=== PATIENT | female | born 1960 | race Two or more races ===

== ENCOUNTER 2016-07-27 11:59 | Emergency (ER) | payer MEDICAID ==
[~2016-07-27] VITALS: Ht 162.6 cm; Wt 113.4 kg
[2016-07-27 12:59] LABS: Basophils # (auto) 0 uL; Basophils % (auto) 0.2 % (0.0-2.0); Eosinophils # (auto) 0.1 uL; Eosinophils % (auto) 1.1 % (0.0-7.0); Hematocrit 47.1 % (36.0-46.0); Hemoglobin 14.7 g/dL (12.2-16.2); Lymphocytes # (auto) 0.5 uL; Lymphocytes % (auto) 6.4 % (10.0-50.0); Mean Corpuscular Hemoglobin 27.5 pg (28.0-32.0); Mean Corpuscular Hgb Conc. 31.3 g/dL (32.0-36.0); Mean Corpuscular Volume 87.9 fL (80.0-100.0); Mean Platelet Volume 12.2 fL (7.4-10.4); Monocytes # (auto) 0.4 uL; Neutrophils # (auto) 6.2 uL; Neutrophils % (auto) 87.3 % (37.0-80.0); Platelet Count (auto) 238 10^3/uL (140-450); Red Cell Distribution Width 14.6 % (11.6-16.0); SUSPECT VIEW TRANSMISSION; White Blood Cell 7.1 10^3/uL (4.4-10.8)
[2016-07-27 13:00] LABS: Urine Bilirubin Negative (Negative); Urine Color Yellow (Yellow); Urine Mucus FEW (None Seen); Urine RBC 7 /hpf (0 - 4); Urine Squamous Epithelial Cell FEW /hpf (<5); Urine Urobilinogen Normal (Negative); Urine pH 5.5 (5.0-8.0)
[2016-07-27 13:05] LABS: INR 0.97 (0.9-1.15); Partial Thromboplastin Time 24.9 sec (22.64-33.71)
[2016-07-27] MEDS ORDERED: SODIUM CHLORIDE 0.9% 1,000 ML IVB ONE (13:05)
[2016-07-27 13:10] LABS: Albumin 3.5 g/dL (3.4-5.0); Calcium 9.3 mg/dL (8.5-10.1); Magnesium 2.2 mg/dL (1.6-2.6); Potassium 4.2 mmol/L (3.5-5.1)
[2016-07-27 13:13] LABS: BUN/Creatinine Ratio 10.7; Bilirubin, Total 0.5 mg/dL (0.2-1.0); Total Protein 7.7 g/dL (6.4-8.2)
[2016-07-27 13:15] LABS: Urine Blood 1+ /uL (Negative); Urine Glucose 4+ mg/dL (Normal); Urine Ketone 4+ (Negative); Urine Nitrite POSITIVE (Negative)
[2016-07-27] MEDS ORDERED: InsuLIN REG 1unit/0.01ml Soln (100units/ml) SC ONE (14:15)
[2016-07-27] MEDS ORDERED: cefTRIAXone 1GM/50ML D5W 50 ML IV ONE (14:15)
[2016-07-27 14:35] VITALS: BP 120/68
== END 2016-07-27 18:10 | disposition left against medical advice (07) ==
LOC: EDBD 11:59 → ER 12:05
DX: R42 Dizziness and giddiness (principal); E11.65 Type 2 diabetes mellitus with hyperglycemia; I10 Essential (primary) hypertension; N39.0 Urinary tract infection, site not specified; E78.5 Hyperlipidemia, unspecified
CPT/HCPCS: 36415; 70450; 71020; 80053; 80320; 81001; 82962; 83735; 84484; 85025; 85610; 85730; 93005; 94761; 96361; 96365; 96372; 99285; J0696; J1815; J7030

== ENCOUNTER 2017-08-21 12:45 | Emergency (ER) | payer OTHER, MEDICAID ==
[~2017-08-21] VITALS: Ht 160 cm; Wt 124.7 kg
[2017-08-21 12:52] VITALS: BP 141/63
== END 2017-08-21 13:45 | disposition home or self-care (01) ==
LOC: ER 12:45
DX: E11.9 Type 2 diabetes mellitus without complications (principal); I10 Essential (primary) hypertension; E78.5 Hyperlipidemia, unspecified; Z76.0 Encounter for issue of repeat prescription; Z79.4 Long term (current) use of insulin

== ENCOUNTER 2020-05-18 13:02 | Inpatient (IN) | payer MEDICAID, OTHER ==
[~2020-05-18] VITALS: Ht 160 cm; Wt 117.9 kg
[2020-05-18] MEDS ORDERED: AMIODARONE HCL 150 MG in D5W 5% 100 ML IV ONE (13:45)
[2020-05-18] MEDS: AMIODARONE 450mg/250ml AE 250 ML IV SCH ×2 (14:18→14:23)
[2020-05-18 14:40] LABS: Basophils # (auto) 0 10 ^3/uL (0-0.2); Basophils % (auto) 0.6 % (0.0-2.0); Eosinophils # (auto) 0.2 10 ^3/uL (0-0.8); Eosinophils % (auto) 3.6 % (0.0-7.0); Hematocrit 43.5 % (36.0-46.0); Hemoglobin 14.3 g/dL (12.2-16.2); Lymphocytes # (auto) 0.6 10 ^3/uL (0.4-5.4); Lymphocytes % (auto) 11.5 % (10.0-50.0); Mean Corpuscular Hemoglobin 30.1 pg (28.0-32.0); Mean Corpuscular Hgb Conc. 32.8 g/dL (32.0-36.0); Monocytes # (auto) 0.3 10 ^3/uL (0-1.3); Monocytes % (auto) 5.3 % (0.0-12.0); Neutrophils # (auto) 4.1 10 ^3/uL (1.6-8.6); Nucleated Red Blood Cells % 0.1 %; Platelet Count (auto) 189 10^3/uL (140-450); Red Blood Cells 4.73 10^6/uL (4.0-5.20); Red Cell Distribution Width 14.8 % (11.8-14.3); White Blood Cell 5.1 10^3/uL (4.4-10.8)
[2020-05-18 14:50] LABS: Albumin 2.8 g/dL (3.4-5.0); Calcium 8.4 mg/dL (8.5-10.1); Potassium 3.8 mmol/L (3.5-5.1)
[2020-05-18 14:51] LABS: Partial Thromboplastin Time 27.2 sec (23.0-31.2)
[2020-05-18 14:55] LABS: Bilirubin, Total 0.5 mg/dL (0.2-1.0); Total Protein 7.2 g/dL (6.4-8.2)
[2020-05-18] MEDS ORDERED: DEXTROSE (50%) 50ML SYRG IV PRN (19:15)
[2020-05-18] MEDS ORDERED: POTASSIUM CHL 20 Meq TABLET PO ONE (19:15)
[2020-05-18] MEDS ORDERED: DIGOXIN (250MCG/ML) 2 ML AMPULE IV ONE (19:15)
[2020-05-18] MEDS ORDERED: FUROSEMIDE 40 MG/4 ML VIAL IV ONE (19:15)
[2020-05-18] MEDS ORDERED: NITROGLYCERIN 0.4 MG SL TAB SL PRN ×2 (19:15→21:15)
[2020-05-18] MEDS ORDERED: MAGNESIUM SULFATE 1GM/100ML 100 ML IV ONE (19:15)
[2020-05-18] MEDS ORDERED: MORPHINE SULF INJ 2 MG/ML SYRINGE 1ML IV PRN ×3 (19:15→21:15)
[2020-05-18] MEDS ORDERED: METOPROLOL SUCCINATE XL 50 MG TAB PO ONE (19:30)
--- NOTE | 2020-05-18 20:15 | NUR ---
Zenaida Hospitalist Zenaida hospitalist regarding patient Amiodarone is Sanjuana'Suze. Patient is running AFIB with Heart rate in the 130-140, Patient is asymptomatic. BP- 134/73 20 Respirations, Temp 98.0 Hr 133. Will await call back. Addendum: 05/18/20 at 2343 by MICHELLE NAVARRETE RN RN zenaida florence at 2214 2014
[2020-05-18] MEDS: ALBUMIN 25% 100 ML IV SCH (20:50)
[2020-05-18] MEDS ORDERED: INFLUENZA QUAD 2020-2021 0.5 ML SYRG IM ONE (21:15)
[2020-05-18] MEDS ORDERED: ALUM & MAG HYDROX-SIMETH LIQ(MAALOX) 30 ML PO PRN (21:15)
[2020-05-18] MEDS ORDERED: HYDROcodone-ACET 5/325MG TAB PO PRN (21:15)
[2020-05-18] MEDS ORDERED: LORazepam 0.5 MG TAB PO PRN (21:15)
[2020-05-18] MEDS ORDERED: ONDANSETRON HCL 4 MG/2 ML VIAL IV PRN (21:15)
[2020-05-18] MEDS ORDERED: PNEUMOCOCCAL VACC POLYS 25 MCG/0.5 ML VIAL IM ONE (21:15)
[2020-05-18] MEDS ORDERED: DOCUSATE SOD 100 MG CAP PO PRN (21:15)
[2020-05-18 21:45] VITALS: BP 134/73
--- NOTE | 2020-05-18 21:45 | NUR ---
Telemetry admit from ER JON PADGETT admitted to Telemetry unit after SBAR received. Patient oriented to MICHELLE NAVARRETE, RN primary RN, unit, room, bed, and unit policies regarding patient care and visiting hours. Patient now on continuous telemetry monitoring, tele box # 27 and telemetry reading on arrival to unit is AFIB hr 133. Patient placed on bedside oxygen, weighed by bedscale and encouraged to call if they need something. All questions and concerns addressed, patient verbalized understanding. Patient is asymptomatic. no pain or distress noted at this time.
[2020-05-18] MEDS: InsuLIN REG 1unit/0.01ml Soln (100units/ml) SC SCH (22:00)
[2020-05-18] MEDS: ACCU-CHEK COMFORT CURVE STRIP VI SCH (22:00)
[2020-05-18 22:06] VITALS: BP 134/73
--- NOTE | 2020-05-18 22:15 | NUR ---
Paged Hospitalist Paged hospitalist regarding patient Amiodarone is D'C. Patient is running AFIB with Heart rate in the 130-140, Patient is asymptomatic. BP- 134/73 20 Respirations, Temp 98.0 Hr 133. Will await call back.
[2020-05-18 22:36] LABS: Magnesium 2.3 mg/dL (1.6-2.6); Potassium 3.5 mmol/L (3.5-5.1)
[2020-05-18] MEDS: GABAPENTIN 100 MG CAP PO SCH (22:42)
[2020-05-18] MEDS: CARVEDILOL 3.125 MG TAB PO SCH (22:47)
[2020-05-18] MEDS: ATORVASTATIN 20 MG TAB PO SCH (22:48)
[2020-05-18] MEDS: NORTRIPTYLINE HCL 10 MG CAP PO SCH (22:48)
--- NOTE | 2020-05-19 00:02 | NUR ---
Paged Hospitalist Paged Hospitalist regarding patients Heart rate still in the 130. And running Afib. Will wait call back.
--- NOTE | 2020-05-19 00:08 | NUR ---
Hospitalist paged back Hospitalist paged back regarding patient Heart rate is now in the low 100-120. Patient is still asymptomatic. Amiodarone drip was discontinued. Let hospitalist know if patient is to continue Digoxin at 0100. Hospitalist said to keep it the way it is. No more amiodarone. Continue medications as scheduled. I also asked for a sleeping pill for patient, doctor said not at this time. Will continue to monitor.
[2020-05-19] MEDS ORDERED: ALBUMIN 25% 100 ML IV SCH (00:30)
[2020-05-19] MEDS: ALBUMIN 25% 100 ML IV SCH (00:40)
[2020-05-19] MEDS: DIGOXIN (250MCG/ML) 2 ML AMPULE IV SCH ×2 (01:45→07:06)
[2020-05-19 02:40] LABS: Cholesterol 110 mg/dL (< 200)
[2020-05-19 02:43] LABS: HDL Cholesterol 54 mg/dL (40-59); LDL Cholesterol 50 mg/dL (< 100); Triglycerides 81 mg/dL (< 150)
--- NOTE | 2020-05-19 02:45 | NUR ---
Patient ambulated to restroom No sob or distress noted. Patient states she feels fine. Heart rate is 110. Patient is still in afib. Will continue to monitor.
--- NOTE | 2020-05-19 03:55 | NUR ---
TELE BOX SENT TO ICU CLEANED.
--- NOTE | 2020-05-19 04:00 | NUR ---
Closing note Patient informed she is covid negative. Patient and all belongings and chart sent to room 295B with WILSON Zimmerman after report given. Patient was wheeled to room and tolerated well. No SOB or distress noted.
--- NOTE | 2020-05-19 04:05 | NUR ---
Patient arrived to unit Received report and assumed care of patient. Patient is awake and alert. No signs or symptoms of distress noted. Will continue to monitor.
[2020-05-19] MEDS: GABAPENTIN 100 MG CAP PO SCH ×3 (06:34→22:00)
[2020-05-19] MEDS: FUROSEMIDE 40 MG/4 ML VIAL IV SCH ×2 (06:34→17:26)
[2020-05-19] MEDS: ACCU-CHEK COMFORT CURVE STRIP VI SCH ×4 (07:04→22:00)
[2020-05-19] MEDS: InsuLIN REG 1unit/0.01ml Soln (100units/ml) SC SCH ×4 (07:05→22:00)
[2020-05-19 09:00] VITALS: BP 113/78
[2020-05-19] MEDS: FLUoxetine HCL 20 MG CAP PO SCH (09:06)
[2020-05-19] MEDS: CARVEDILOL 3.125 MG TAB PO SCH ×2 (09:06→22:00)
[2020-05-19] MEDS: LOSARTAN POTASSIUM 25 MG TAB PO SCH (09:07)
[2020-05-19] MEDS ORDERED: POTASSIUM CHL 20 Meq TABLET PO ONE (10:00)
[2020-05-19] MEDS: dilTIAZem 120MG ER CAP PO SCH ×2 (10:00→12:24)
[2020-05-19] MEDS ORDERED: DIGOXIN (250MCG/ML) 2 ML AMPULE IV ONE (10:00)
--- NOTE | 2020-05-19 10:47 | NUR ---
Spoke to Dixie OLIVEIRA regarding BP 90s/70s HR 102s, received new orders to hold Diltazem.
[2020-05-19 11:03] LABS: Urine Bacteria NONE SEEN /hpf (None Seen); Urine Blood Negative /uL (Negative); Urine Specific Gravity 1.005 (1.001-1.035); Urine WBC 1 /hpf (0 - 5)
[2020-05-19 11:14] LABS: Alcohol, Urine < 3.0 mg/dL (0-10); Amphetamine Screen, Urine NEGATIVE (NEGATIVE); Barbiturate Scree,Urine NEGATIVE (NEGATIVE); Benzodiazephine Screen, Urine NEGATIVE (NEGATIVE); Cannabinoid Screen, Urine NEGATIVE (NEGATIVE); Cocaine Screen, Urine NEGATIVE (NEGATIVE); Opiate Scree,Urine NEGATIVE (NEGATIVE); Phencyclidine Screen, Urine NEGATIVE (NEGATIVE)
--- NOTE | 2020-05-19 12:14 | NUR ---
Informed Keny DISPUTE COORDINATOR regarding HR 120s, stated to give Diltiazem if SBP>100.
[2020-05-19 13:00] VITALS: BP 138/72
[2020-05-19 17:00] VITALS: BP 106/65
[2020-05-19] MEDS ORDERED: WARFARIN SODIUM 2.5 MG TAB PO ONE (17:00)
[2020-05-19 22:00] VITALS: BP 128/87
[2020-05-19] MEDS: NORTRIPTYLINE HCL 10 MG CAP PO SCH (22:00)
[2020-05-19] MEDS: ATORVASTATIN 20 MG TAB PO SCH (22:00)
--- NOTE | 2020-05-20 01:35 | NUR ---
Pt's HR in 140s to 150s. This RN reporting to pt's room finding pt up OOB and in bathroom. Denies any discomfort, SOB or dizziness. States her HR prob 'fast' because she had been trying to clean herself of feces and unable to do so 2/2 obesity. This RN assisted pt in cleaning herself and gave standby assist for pt back to bed.
--- NOTE | 2020-05-20 02:10 | NUR ---
Pt back into bed per nurse's direction as cont A fib in 110s - 120s and c/o sharp stabbing galvez in mid sternum. O2 nasal cannula placed with O2 at 2lpm.
--- NOTE | 2020-05-20 02:29 | NUR ---
Pt cont playing games or 'painting' on her phone apps. States, "I feel better...pain is gone."
[2020-05-20 05:00] VITALS: BP 133/74
[2020-05-20] MEDS: GABAPENTIN 100 MG CAP PO SCH ×3 (06:00→22:01)
[2020-05-20] MEDS: FUROSEMIDE 40 MG/4 ML VIAL IV SCH ×2 (06:29→17:28)
[2020-05-20] MEDS: ACCU-CHEK COMFORT CURVE STRIP VI SCH ×4 (06:44→22:02)
[2020-05-20] MEDS: InsuLIN REG 1unit/0.01ml Soln (100units/ml) SC SCH ×4 (07:23→22:08)
--- NOTE | 2020-05-20 07:34 | NUR ---
Pt and this RN discussed fluidi intake requirements, diet needs to combat CHF, DM, and HTN on various visits into room. Pt showed interest and some prev knowledge. VU. In good spirits at this time.
[2020-05-20 09:00] VITALS: BP 109/71
[2020-05-20 09:01] LABS: Basophils # (auto) 0 10 ^3/uL (0-0.2); Basophils % (auto) 0.8 % (0.0-2.0); Eosinophils # (auto) 0.3 10 ^3/uL (0-0.8); Eosinophils % (auto) 5.2 % (0.0-7.0); Hematocrit 45.2 % (36.0-46.0); Hemoglobin 14.8 g/dL (12.2-16.2); Lymphocytes # (auto) 0.7 10 ^3/uL (0.4-5.4); Lymphocytes % (auto) 11.1 % (10.0-50.0); Mean Corpuscular Hemoglobin 30.1 pg (28.0-32.0); Mean Corpuscular Hgb Conc. 32.8 g/dL (32.0-36.0); Mean Corpuscular Volume 91.7 fL (80.0-100.0); Monocytes # (auto) 0.5 10 ^3/uL (0-1.3); Monocytes % (auto) 8.1 % (0.0-12.0); Neutrophils # (auto) 4.4 10 ^3/uL (1.6-8.6); Neutrophils % (auto) 74.8 % (37.0-80.0); Nucleated Red Blood Cells % 0.2 %; Platelet Count (auto) 213 10^3/uL (140-450); Red Blood Cells 4.93 10^6/uL (4.0-5.20); Red Cell Distribution Width 14.6 % (11.8-14.3); White Blood Cell 5.9 10^3/uL (4.4-10.8)
[2020-05-20] MEDS: dilTIAZem 120MG ER CAP PO SCH (09:02)
[2020-05-20] MEDS: CARVEDILOL 3.125 MG TAB PO SCH ×2 (09:03→22:01)
[2020-05-20] MEDS: FLUoxetine HCL 20 MG CAP PO SCH (09:03)
[2020-05-20] MEDS: LOSARTAN POTASSIUM 25 MG TAB PO SCH (09:04)
[2020-05-20 09:10] LABS: INR 1.03 (0.9-1.15)
[2020-05-20 09:26] LABS: BUN/Creatinine Ratio 15.7; Calcium 9.6 mg/dL (8.5-10.1); Potassium 3.8 mmol/L (3.5-5.1)
--- NOTE | 2020-05-20 10:14 | NUR ---
LIZZ RUELAS paged , awaiting to call back.
--- NOTE | 2020-05-20 10:41 | NUR ---
1040 05/20/20 I faxed transfer order and Notice Regarding Post Stabilization to [facility]-document to be scanned into [facility]. I faxed today's transfer summary, labs, vitals, and medication list to [facility]. I faxed negative COVID test to [facility].
[2020-05-20 13:00] VITALS: BP 101/58
--- NOTE | 2020-05-20 14:22 | NUR ---
1420 05/20/20 I called [facility] and spoke with software engineering analyst Kari regarding transfer order. Per Kari they did receive the transfer order and case reviewer is working on it-they will call nurse's station if/when a bed becomes available. Per Kari, she is unable to give me updated information on authorization for continued stay-she will have to have the case reviewer call me back. I let her know that I am pageable through the hospital acid wash operator until 1700.
--- NOTE | 2020-05-20 16:55 | NUR ---
BS 405, spoke to Dr. Salvador, received new orders, noted and carried it out.
--- NOTE | 2020-05-20 16:58 | NUR ---
CD delivered, placed in the folder.
[2020-05-20] MEDS ORDERED: WARFARIN SODIUM 10 MG TAB PO ONE (17:00)
[2020-05-20] MEDS ORDERED: DEXTROSE (50%) 50ML SYRG IV PRN (17:00)
--- NOTE | 2020-05-20 17:10 | NUR ---
Received a call from Theresa RUELAS from [facility] stated patient has a bed and wants to talk to Dr. Salvador, however, unable to page Dr. Salvador after 5 PM and SURAJ [facility] infection control coordinator till 5 PM. Instructed to call power tong operator for infection control coordinator .
--- NOTE | 2020-05-20 18:42 | NUR ---
Fax the check list back to [facility] # [phone].
--- NOTE | 2020-05-20 18:43 | NUR ---
Received a call from Sb OLIVEIRA stated [place] wants to transfer patient to [facility] but patient needs a stress test, which they cannot provide to patient. Therefore, patient has to stay at [facility].
--- NOTE | 2020-05-20 18:49 | NUR ---
Informed patient regarding [facility] cannot transfer her tonight due to she needs a stress test.
--- NOTE | 2020-05-20 19:00 | NUR ---
Opening Shift Note Assumed care of patient, awake and alert. No S/S of distress/SOB or pain. Instructed on POC and to call for assist PRN, will continue to monitor for changes Q1hr and PRN. Patient in the lowest possible position with call light within reach. Bed rails up x2.
[2020-05-20 20:00] VITALS: BP 139/64
[2020-05-20] MEDS: ATORVASTATIN 20 MG TAB PO SCH (22:01)
[2020-05-20 22:30] VITALS: BP 139/64
[2020-05-20] MEDS: NORTRIPTYLINE HCL 10 MG CAP PO SCH (22:42)
[2020-05-21 05:00] VITALS: BP 106/57
[2020-05-21 05:58] LABS: Basophils # (auto) 0 10 ^3/uL (0-0.2); Basophils % (auto) 0.6 % (0.0-2.0); Eosinophils # (auto) 0.3 10 ^3/uL (0-0.8); Eosinophils % (auto) 4.8 % (0.0-7.0); Hematocrit 43.2 % (36.0-46.0); Hemoglobin 14.2 g/dL (12.2-16.2); Lymphocytes # (auto) 0.7 10 ^3/uL (0.4-5.4); Lymphocytes % (auto) 13.5 % (10.0-50.0); Mean Corpuscular Hemoglobin 29.8 pg (28.0-32.0); Mean Corpuscular Hgb Conc. 32.8 g/dL (32.0-36.0); Mean Corpuscular Volume 90.8 fL (80.0-100.0); Monocytes # (auto) 0.6 10 ^3/uL (0-1.3); Monocytes % (auto) 11.1 % (0.0-12.0); Neutrophils # (auto) 3.8 10 ^3/uL (1.6-8.6); Nucleated Red Blood Cells % 0.3 %; Platelet Count (auto) 215 10^3/uL (140-450); Red Blood Cells 4.76 10^6/uL (4.0-5.20); Red Cell Distribution Width 14.6 % (11.8-14.3); White Blood Cell 5.4 10^3/uL (4.4-10.8)
[2020-05-21 06:07] LABS: INR 1.04 (0.9-1.15)
[2020-05-21] MEDS: GABAPENTIN 100 MG CAP PO SCH ×3 (06:20→21:35)
[2020-05-21] MEDS: FUROSEMIDE 40 MG/4 ML VIAL IV SCH ×2 (06:20→17:36)
[2020-05-21] MEDS: ACCU-CHEK COMFORT CURVE STRIP VI SCH ×4 (06:21→21:40)
[2020-05-21] MEDS: InsuLIN REG 1unit/0.01ml Soln (100units/ml) SC SCH ×4 (06:28→21:48)
[2020-05-21] MEDS ORDERED: ADENOSINE 85 MG in GIVE UN-DILUTED 0 ML IV STA (08:48)
[2020-05-21 09:00] VITALS: BP 132/58
--- NOTE | 2020-05-21 10:24 | NUR ---
Stress Test Connected patient to plastics bench mechanic. Pt in Afib with RVR of HR at 135. Notified BOLT CUTTER Jesus and she stated the patients HR needs to be under control before the test can be completed. Took patient back up to her room. Will assess tomorrow if patients HR is under control and we may be able to proceed at that time. Notified primary RN Samreen
--- NOTE | 2020-05-21 10:27 | NUR ---
1020 05/21/20 - contacted [facility] at [phone] to get an update on pending transfer, spoke with reconciliation analyst Tristian who requested me to fax current clinicals and order for transfer. I informed Tristian all current clinicals were faxed early this morning. Newspaper Subscription Solicitor stated the caser up assigned today to this patient is Ann Marie Barnard who will call me back with an updated regarding this transfer to [place]. Received a call from [place] caser up Dominique at 1040 who stated currently there are no beds available in [place] or [place]. Only beds available are in [place] which is more than 30 miles from patients resident. She will call back later with an update.
[2020-05-21] MEDS: FLUoxetine HCL 20 MG CAP PO SCH (10:30)
[2020-05-21] MEDS: LOSARTAN POTASSIUM 25 MG TAB PO SCH (10:31)
[2020-05-21] MEDS: CARVEDILOL 3.125 MG TAB PO SCH ×2 (10:32→21:34)
[2020-05-21] MEDS: DIGOXIN 0.125 MG TAB PO SCH (10:32)
--- NOTE | 2020-05-21 11:40 | NUR ---
1025 05/21/20 - Contacted by Barbara pillowcase sewer Dominique who provided authorization [id number] for inpatient stay 05/21- 05/22 2020@1000AM. Pending transfer to [facility] but currently no beds available in the [place] or [place]. Only beds available are in the [place] area which is more than 30 miles from patient's home. biofuels engineering manager stated she will provide update if bed becomes available.
[2020-05-21 16:41] VITALS: BP 110/84
--- NOTE | 2020-05-21 19:25 | NUR ---
Opening Shift Note Assumed care of patient. Patient is sitting up in her chair awake and alert. No S/S of distress/SOB or pain. Bed is locked in lowest position with call light within reach. Instructed on POC and to call for assist PRN, will continue to monitor for changes Q1hr and PRN.
[2020-05-21] MEDS ORDERED: WARFARIN SODIUM 10 MG TAB PO ONE (21:00)
[2020-05-21] MEDS: NORTRIPTYLINE HCL 10 MG CAP PO SCH (21:34)
[2020-05-21] MEDS: ATORVASTATIN 20 MG TAB PO SCH (21:35)
[2020-05-22] MEDS: ACETAMINOPHEN 325 MG TAB PO PRN ×2 (01:18→19:19)
--- NOTE | 2020-05-22 02:40 | NUR ---
PATIENT'S HEART RATE HAS BEEN FLUCTUATING BETWEEN 130S AND 150S. PATIENT IS CURRENTLY ASYMPTOMATIC. VITALS: T 97.9 F BP 116/76 HR 144 AND RR 18. NOTIFIED HOSPITALIST ABOUT THE PATIENT'S HEART RATE. NEW ORDER FOR DILTAZEM 10 MG IV ONCE RECEIVED.
[2020-05-22] MEDS ORDERED: dilTIAZem 25 MG/5 ML VIAL IV ONE (03:00)
[2020-05-22 05:00] VITALS: BP 121/68
[2020-05-22] MEDS: FUROSEMIDE 40 MG/4 ML VIAL IV SCH ×2 (06:00→17:38)
[2020-05-22] MEDS: GABAPENTIN 100 MG CAP PO SCH ×3 (06:00→22:00)
[2020-05-22] MEDS: InsuLIN REG 1unit/0.01ml Soln (100units/ml) SC SCH ×4 (06:43→22:00)
[2020-05-22] MEDS: ACCU-CHEK COMFORT CURVE STRIP VI SCH ×4 (07:00→22:00)
--- NOTE | 2020-05-22 08:29 | NUR ---
STRESS TEST CALLED AND SPOKE WITH KIKI RACHEL AND SHE STATED PATIENTS HR IS IN THE 140'S (A FIB WITH RVR), NOTIFIED ROXANNE DHALIWAL. NO STRESS TEST WILL BE DONE TODAY DUE TO HIGH HR.
[2020-05-22] MEDS: FLUoxetine HCL 20 MG CAP PO SCH (09:06)
[2020-05-22] MEDS: DIGOXIN 0.125 MG TAB PO SCH (09:06)
[2020-05-22] MEDS: LOSARTAN POTASSIUM 25 MG TAB PO SCH (09:06)
[2020-05-22] MEDS: CARVEDILOL 3.125 MG TAB PO SCH (09:07)
[2020-05-22 09:30] VITALS: BP 135/72
[2020-05-22 09:43] LABS: INR 1.08 (0.9-1.15)
[2020-05-22] MEDS: dilTIAZem 120MG ER CAP PO SCH (10:40)
--- NOTE | 2020-05-22 14:52 | NUR ---
Nutrition Assessment Notes please see attached link for complete assessment Est energy needs ABW 85 [id number] kcal (17-20kcal/kg ABW), Est protein needs 85-93g (1-1.1g/kg ABW). Will monitor and reassess prn. Addendum: 05/22/20 at [address] Amended: Links added.
[2020-05-22 15:17] LABS: Potassium 3.8 mmol/L (3.5-5.1)
[2020-05-22 15:19] LABS: Magnesium 1.8 mg/dL (1.6-2.6)
[2020-05-22 17:00] VITALS: BP 109/59
[2020-05-22] MEDS ORDERED: WARFARIN SODIUM 10 MG TAB PO ONE (17:00)
--- NOTE | 2020-05-22 19:35 | NUR ---
Opening Shift Note Assumed care of patient. Patient is still up in chair while watching TV. Patient is awake and alert. No S/S of distress/SOB or pain. Bed is locked in lowest position with call light within reach. Instructed on POC and to call for assist PRN, will continue to monitor for changes Q1hr and PRN.
[2020-05-22 21:00] VITALS: BP 140/82
[2020-05-22] MEDS: ATORVASTATIN 20 MG TAB PO SCH (22:00)
[2020-05-22] MEDS: NORTRIPTYLINE HCL 10 MG CAP PO SCH (22:00)
--- NOTE | 2020-05-23 00:15 | NUR ---
hospitalist notified pt's BS of 401. rechecked done after [id number]
[2020-05-23 05:00] VITALS: BP 138/97
[2020-05-23] MEDS: FUROSEMIDE 40 MG/4 ML VIAL IV SCH ×2 (06:00→17:46)
[2020-05-23] MEDS: GABAPENTIN 100 MG CAP PO SCH ×3 (06:00→21:47)
[2020-05-23] MEDS: InsuLIN REG 1unit/0.01ml Soln (100units/ml) SC SCH ×4 (06:25→21:46)
--- NOTE | 2020-05-23 06:35 | NUR ---
HOSPITALIST PAGED Patient's heart rate is sustaining in the 130s to 150s after getting up to go to the restroom. Notified RETAIL CUSTOMER SERVICE REPRESENTATIVE [place] about the patient's elevated heart rate. Order to give 1000 Diltiazem 240 mg PO earlier.
[2020-05-23] MEDS: ACCU-CHEK COMFORT CURVE STRIP VI SCH ×4 (06:50→21:47)
[2020-05-23] MEDS: dilTIAZem 120MG ER CAP PO SCH (06:50)
[2020-05-23 08:00] VITALS: BP 129/67
[2020-05-23 08:35] LABS: INR 1.29 (0.9-1.15)
[2020-05-23 08:39] LABS: Albumin 3.3 g/dL (3.4-5.0)
[2020-05-23 08:41] LABS: Basophils # (auto) 0 10 ^3/uL (0-0.2); Basophils % (auto) 0.7 % (0.0-2.0); Eosinophils # (auto) 0.1 10 ^3/uL (0-0.8); Eosinophils % (auto) 2.1 % (0.0-7.0); Hematocrit 46.4 % (36.0-46.0); Hemoglobin 15.2 g/dL (12.2-16.2); Lymphocytes # (auto) 0.3 10 ^3/uL (0.4-5.4); Lymphocytes % (auto) 9.6 % (10.0-50.0); Mean Corpuscular Hemoglobin 29.8 pg (28.0-32.0); Mean Corpuscular Hgb Conc. 32.8 g/dL (32.0-36.0); Mean Corpuscular Volume 90.8 fL (80.0-100.0); Monocytes # (auto) 0.6 10 ^3/uL (0-1.3); Monocytes % (auto) 17.5 % (0.0-12.0); Neutrophils # (auto) 2.4 10 ^3/uL (1.6-8.6); Neutrophils % (auto) 70.1 % (37.0-80.0); Nucleated Red Blood Cells % 0.4 %; Platelet Count (auto) 217 10^3/uL (140-450); Red Blood Cells 5.11 10^6/uL (4.0-5.20); Red Cell Distribution Width 14.8 % (11.8-14.3); White Blood Cell 3.4 10^3/uL (4.4-10.8)
[2020-05-23 09:00] VITALS: BP 129/67
[2020-05-23] MEDS: DIGOXIN 0.25 MG TAB PO SCH (10:47)
[2020-05-23] MEDS: FLUoxetine HCL 20 MG CAP PO SCH (10:47)
[2020-05-23] MEDS: LOSARTAN POTASSIUM 25 MG TAB PO SCH (10:49)
[2020-05-23] MEDS ORDERED: WARFARIN SODIUM 10 MG TAB PO ONE (17:00)
--- NOTE | 2020-05-23 19:30 | NUR ---
Opening Shift Note Assumed care of patient, awake and alert. Reported headache, will give pain med. Instructed on POC and to call for assist PRN, will continue to monitor for changes Q1hr and PRN.
[2020-05-23] MEDS: ATORVASTATIN 20 MG TAB PO SCH (21:47)
[2020-05-23] MEDS: NORTRIPTYLINE HCL 10 MG CAP PO SCH (22:00)
[2020-05-24 00:49] VITALS: BP 130/72
[2020-05-24] MEDS: FUROSEMIDE 40 MG/4 ML VIAL IV SCH ×2 (05:38→17:54)
[2020-05-24] MEDS: GABAPENTIN 100 MG CAP PO SCH ×3 (05:38→22:42)
[2020-05-24 05:41] VITALS: BP 135/64
[2020-05-24] MEDS: ACCU-CHEK COMFORT CURVE STRIP VI SCH ×4 (06:24→22:26)
[2020-05-24] MEDS: InsuLIN REG 1unit/0.01ml Soln (100units/ml) SC SCH ×3 (06:26→17:24)
--- NOTE | 2020-05-24 07:30 | NUR ---
closing note endorsed care to WILSON Lezama. Sitting up in chair. denies pain/distress at this time
[2020-05-24 08:00] LABS: INR 1.29 (0.9-1.15)
[2020-05-24] MEDS ORDERED: MAGNESIUM SULFATE 1GM/100ML 100 ML IV ONE (08:15)
[2020-05-24 09:00] VITALS: BP 112/72
[2020-05-24] MEDS: LOSARTAN POTASSIUM 25 MG TAB PO SCH (10:00)
[2020-05-24] MEDS: FLUoxetine HCL 20 MG CAP PO SCH (10:00)
[2020-05-24] MEDS: dilTIAZem 120MG ER CAP PO SCH (10:17)
[2020-05-24] MEDS: DIGOXIN 0.25 MG TAB PO SCH (10:18)
--- NOTE | 2020-05-24 11:00 | NUR ---
WOUND CARE NOTE: WOUND CONSULT ORDERED FOR PATIENT WITH MILD INTERTRIGINOUS RASH TO THE BREAST SKIN FOLD AREAS. SKIN INTACT, RED. ADVISED BEDSIDE NURSE THAT PATIENT SHOULD HAVE ANTIFUNGAL CLEAR OINTMENT PLACED BID TO HER RED RASH AREAS OF BREAST SKIN FOLD. NO WOUND CARE MONITORING IS NEEDED AT THIS TIME.
[2020-05-24] MEDS ORDERED: DIGOXIN 0.25 MG TAB PO ONE (11:30)
[2020-05-24 13:00] VITALS: BP 102/73
[2020-05-24 15:34] LABS: Magnesium 1.7 mg/dL (1.6-2.6); Potassium 3.3 mmol/L (3.5-5.1)
[2020-05-24 17:00] VITALS: BP 113/53
[2020-05-24] MEDS ORDERED: WARFARIN SODIUM 10 MG TAB PO ONE (17:00)
--- NOTE | 2020-05-24 19:30 | NUR ---
Opening Shift Note Assumed care of patient, awake and alert. No S/S of distress/SOB or pain. Instructed on POC and to call for assist PRN, will continue to monitor for changes Q1hr and PRN.
[2020-05-24 21:40] VITALS: BP 125/53
[2020-05-24] MEDS: INSULIN LANTUS (GLARGINE) 1 /0.01ml (100units/ml) SC SCH (22:26)
--- NOTE | 2020-05-24 22:40 | NUR ---
spoke with hosp regarding pt's blood sugar critical value. no new order received.
[2020-05-24] MEDS: ATORVASTATIN 20 MG TAB PO SCH (22:42)
[2020-05-24] MEDS: AMIODARONE HCL 200 MG TAB PO SCH (22:42)
[2020-05-24] MEDS: NORTRIPTYLINE HCL 10 MG CAP PO SCH (22:42)
[2020-05-25] MEDS: InsuLIN REG 1unit/0.01ml Soln (100units/ml) SC SCH ×7 (01:03→23:38)
[2020-05-25 04:00] VITALS: BP 113/71
[2020-05-25] MEDS: GABAPENTIN 100 MG CAP PO SCH ×3 (05:23→22:44)
[2020-05-25] MEDS: FUROSEMIDE 40 MG/4 ML VIAL IV SCH ×2 (05:24→19:21)
[2020-05-25] MEDS: ACCU-CHEK COMFORT CURVE STRIP VI SCH ×5 (06:47→22:00)
--- NOTE | 2020-05-25 07:30 | NUR ---
closing note endorsed care to WILSON Lezama, No sign of pain/distress at this time
[2020-05-25 09:00] VITALS: BP 113/72
[2020-05-25 09:13] LABS: Albumin 3.3 g/dL (3.4-5.0); Calcium 8.8 mg/dL (8.5-10.1)
[2020-05-25 09:16] LABS: BUN/Creatinine Ratio 25.5; Bilirubin, Total 0.4 mg/dL (0.2-1.0)
[2020-05-25 09:51] LABS: INR 1.46 (0.9-1.15)
[2020-05-25] MEDS ORDERED: dilTIAZem 120MG ER CAP PO SCH (10:00)
[2020-05-25] MEDS: AMIODARONE HCL 200 MG TAB PO SCH ×2 (10:09→22:45)
[2020-05-25] MEDS: DIGOXIN 0.25 MG TAB PO SCH (10:10)
[2020-05-25] MEDS: FLUoxetine HCL 20 MG CAP PO SCH (10:11)
[2020-05-25] MEDS ORDERED: POTASSIUM CHL 20 Meq TABLET PO ONE ×2 (12:15→12:45)
--- NOTE | 2020-05-25 12:20 | NUR ---
MD AT BEDSIDE DR. Aga GAN WAS IN TO SEE PATIENT AND MD LEFT NEW ORDERS. MD WANTED TO TO KNOW WHAT CARDIO WAS PLANNING FOR PATIENT HER HEART RATE REMAINS ELEVATED. EMILIA DHALIWAL SENIOR SQL DATABASE DEVELOPER ABOUT SAME AND WAITING FOR HER TO RETURN CALL.
[2020-05-25] MEDS ORDERED: dilTIAZem 25 MG/5 ML VIAL IV ONE (12:30)
[2020-05-25] MEDS ORDERED: dilTIAZem 125mg/125ml BAG KIT 125 ML IV SCH (12:30)
--- NOTE | 2020-05-25 12:30 | NUR ---
Tylor DHALIWAL RETURNED CALLED AND WILL TALK WITH DR. GUDINO ABOUT UNCONTROLLED HEART RATE AND WILL CALL ME BACK.
--- NOTE | 2020-05-25 12:40 | NUR ---
ROXANNE DHALIWAL CALLED AND LEFT NEW ORDERS. PATIENT TO TRANSFER TO [place] SHE HAS ORDERS FOR CARDIZEM DRIP. JOLENE ADKINS MADE AWARE OF SAME.
[2020-05-25] MEDS ORDERED: MAGNESIUM SULFATE 1GM/100ML 100 ML IV ONE (12:45)
[2020-05-25] MEDS ORDERED: IOHEXOL 350 MG/ML 100ML IJ ONE (12:57)
[2020-05-25 13:00] VITALS: BP 121/50
--- NOTE | 2020-05-25 13:40 | NUR ---
PATIENT LEFT FOR CT ANGIOGRAM PER W/C IN STABLE CONDITION. APATIENT'S HR NOTED TO BE IN THE LOW 100 AND 90S AT THIS TIME.
--- NOTE | 2020-05-25 13:53 | NUR ---
Nutrition Followup Notes Pt wt is 119.3 kg Pt is being ruled out for COVID. Pt is with a CCHO 60g, appetite is fair aeb ave 63% PO intake over 3 days per RN doc. Est energy needs ABW 85 [id number] kcal (17-20kcal/kg ABW), Est protein needs 85-93g (1-1.1g/kg ABW). Will monitor and reassess prn. LABS: BUN 26 H, ALB 3.3 L GI: Pt had 1 BM on 05/25 per RN doc BS: 21 low risk. Refer to wound assessment report for further details PES: 1) Decreased nutrient needs r.t adiposity aeb pt1s high BMI of 46.4 kgm2 2) Altered nutrition related lab values r.t current chronic medical condition aeb elev A1C hyperglycemia Malnutrition related to morbid BMI> or equal to 40 Malnutrition related to morbid obesity Yes Comments Will continue to monitor PO status, skin status, pertinent labs and weight trends. Will f/u in 2-3 days 1) Refer to CDE oN DC 2) Continue current plan of care
--- NOTE | 2020-05-25 14:30 | NUR ---
PATIENT NOTED TO BE BACK IN HER ROOM AND HER HEART RATE NOTED TO BE IN THE 80S AND 90S. EMILIA DHALIWAL PETROLEUM INSPECTOR SUPERVISOR AND NOTIFIED HER OF SAME AND PATIENT TO STAY IN TELEMETRY AND SHE LEFT NEW ORDERS. CLARIFIED HER ORDER ORDER FOR POTASSIUM PO PATIENT ALREADY HAD 40 MEQ PREVIOU[address]Y ORDERED BY DR. Aga GAN. SHE STATED THAT SHE WANTED PATIENT TO HAVE TOTAL OF 60 MEQ KCL.
[2020-05-25 17:00] VITALS: BP 103/61
[2020-05-25] MEDS ORDERED: WARFARIN SODIUM 10 MG TAB PO ONE (17:00)
[2020-05-25 22:00] VITALS: BP 124/75
[2020-05-25] MEDS: ATORVASTATIN 20 MG TAB PO SCH (22:43)
[2020-05-25] MEDS: INSULIN LANTUS (GLARGINE) 1 /0.01ml (100units/ml) SC SCH (22:54)
[2020-05-25] MEDS: POTASSIUM CHL 10 Meq TABLET PO SCH (23:15)
[2020-05-25] MEDS: NORTRIPTYLINE HCL 10 MG CAP PO SCH (23:16)
[2020-05-26] MEDS: ACCU-CHEK COMFORT CURVE STRIP VI SCH ×6 (02:00→22:00)
[2020-05-26] MEDS: InsuLIN REG 1unit/0.01ml Soln (100units/ml) SC SCH ×6 (03:02→22:00)
[2020-05-26 05:00] VITALS: BP 113/84
[2020-05-26] MEDS: FUROSEMIDE 40 MG/4 ML VIAL IV SCH ×2 (06:00→17:54)
[2020-05-26] MEDS: GABAPENTIN 100 MG CAP PO SCH ×3 (06:47→22:00)
--- NOTE | 2020-05-26 07:06 | NUR ---
OPENING SHIFT NOTE Assumed care of patient from scene shifter RN. She is alert and orientedx4, patient complaining of headache, will medicate as ordered, no other signs of distress noted. She was updated on the plan of care and verbalized understanding. Bed is locked, in the lowest position, side rails are up x2 and call light is in reach. She was encouraged to call for assistance as needed.
[2020-05-26 08:19] LABS: Potassium 3.5 mmol/L (3.5-5.1)
[2020-05-26 08:23] LABS: Magnesium 2.3 mg/dL (1.6-2.6)
[2020-05-26 08:24] LABS: INR 1.66 (0.9-1.15)
[2020-05-26] MEDS: ACETAMINOPHEN 325 MG TAB PO PRN (08:39)
[2020-05-26 09:00] VITALS: BP 114/62
[2020-05-26] MEDS: AMIODARONE HCL 200 MG TAB PO SCH ×2 (09:49→22:00)
[2020-05-26] MEDS: FLUoxetine HCL 20 MG CAP PO SCH (09:51)
[2020-05-26] MEDS: DIGOXIN 0.125 MG TAB PO SCH (09:51)
[2020-05-26] MEDS: dilTIAZem 120MG ER CAP PO SCH (09:52)
[2020-05-26] MEDS: POTASSIUM CHL 10 Meq TABLET PO SCH ×2 (09:52→22:00)
--- NOTE | 2020-05-26 10:51 | NUR ---
MALIK AT BEDSIDE updated on the patient status, plan of care was discussed with the patient and she verbalized understanding. No new orders received.
--- NOTE | 2020-05-26 10:51 | NUR ---
CALL FROM [facility] Xiao piano case maker was updated on the patient status, Patient stay is authorized for today.
[2020-05-26 13:00] VITALS: BP 125/64
--- NOTE | 2020-05-26 13:15 | NUR ---
PATIENT TAKEN TO XRAY accompanied by staff, no signs of distress noted on departure.
--- NOTE | 2020-05-26 13:40 | NUR ---
PATIENT BACK FROM XRAY. NO SIGNS OF DISTRESS NOTED. PATIENT SITTING IN CHAIR AT BEDSIDE. SHE WAS ENCOURAGED TO CALL FOR ASSISTANCE NEEDED.
[2020-05-26 17:00] VITALS: BP 125/65
[2020-05-26] MEDS ORDERED: WARFARIN SODIUM 2.5 MG TAB PO ONE (17:00)
[2020-05-26] MEDS ORDERED: WARFARIN SODIUM 10 MG TAB PO ONE (17:00)
[2020-05-26] MEDS: NORTRIPTYLINE HCL 10 MG CAP PO SCH (22:00)
[2020-05-26] MEDS: INSULIN LANTUS (GLARGINE) 1 /0.01ml (100units/ml) SC SCH (22:00)
[2020-05-26] MEDS: ATORVASTATIN 20 MG TAB PO SCH (22:00)
[2020-05-26 22:24] VITALS: BP 119/49
[2020-05-27] MEDS: InsuLIN REG 1unit/0.01ml Soln (100units/ml) SC SCH ×5 (02:00→21:56)
[2020-05-27] MEDS: ACETAMINOPHEN 325 MG TAB PO PRN (02:15)
--- NOTE | 2020-05-27 02:15 | NUR ---
Tylenol 650mg po given for throbbing H/A 01/29 per pt's request. Ativan also given as pt c/o not being able to sleep. Pt sitting up in chair; RN instructed her of need to get back into bed.
[2020-05-27] MEDS: ACCU-CHEK COMFORT CURVE STRIP VI SCH ×5 (02:29→21:56)
--- NOTE | 2020-05-27 03:17 | NUR ---
This RN found pt sleeping upright in chair at foot of bed as pt had been before taking Ativan. Standby assist given as pt returned to bed without diff.
[2020-05-27 05:28] LABS: Basophils # (auto) 0 10 ^3/uL (0-0.2); Basophils % (auto) 0.4 % (0.0-2.0); Eosinophils # (auto) 0 10 ^3/uL (0-0.8); Eosinophils % (auto) 1.3 % (0.0-7.0); Hemoglobin 14.6 g/dL (12.2-16.2); Lymphocytes # (auto) 0.5 10 ^3/uL (0.4-5.4); Lymphocytes % (auto) 17.7 % (10.0-50.0); Mean Corpuscular Hemoglobin 30.4 pg (28.0-32.0); Mean Corpuscular Volume 89.4 fL (80.0-100.0); Monocytes # (auto) 0.4 10 ^3/uL (0-1.3); Monocytes % (auto) 12.5 % (0.0-12.0); Neutrophils # (auto) 1.9 10 ^3/uL (1.6-8.6); Neutrophils % (auto) 68.1 % (37.0-80.0); Platelet Count (auto) 168 10^3/uL (140-450); Red Blood Cells 4.81 10^6/uL (4.0-5.20); Red Cell Distribution Width 14.4 % (11.8-14.3); White Blood Cell 2.8 10^3/uL (4.4-10.8)
[2020-05-27 05:29] VITALS: BP 114/74
[2020-05-27 05:36] LABS: INR 2.35 (0.9-1.15)
--- NOTE | 2020-05-27 07:11 | NUR ---
OPENING SHIFT NOTE Assumed care of patient from third shift lieutenant RN. Patient is alert and oriented x4. no signs of distress noted, denies pain. She is sitting in a chair at bedside. She was updated on the plan of care and verbalized understanding. Bed is locked, in the lowest position, side rails upx2, and call light is in reach. She was encouraged to call for assistance as needed.
[2020-05-27 08:00] VITALS: BP 141/68
--- NOTE | 2020-05-27 09:40 | NUR ---
MALIK AT BEDSIDE updated on the patient status. Plan of care was discussed with the patient and she verbalized understanding. No new orders received.
[2020-05-27] MEDS: AMIODARONE HCL 200 MG TAB PO SCH ×2 (10:19→21:57)
[2020-05-27] MEDS: POTASSIUM CHL 10 Meq TABLET PO SCH ×2 (10:19→21:57)
[2020-05-27] MEDS: dilTIAZem 120MG ER CAP PO SCH (10:19)
[2020-05-27] MEDS: FLUoxetine HCL 20 MG CAP PO SCH (10:20)
[2020-05-27] MEDS: DIGOXIN 0.125 MG TAB PO SCH (10:20)
[2020-05-27 12:00] VITALS: BP 134/63
[2020-05-27] MEDS: GABAPENTIN 100 MG CAP PO SCH ×2 (13:44→21:57)
[2020-05-27 16:00] VITALS: BP 117/59
[2020-05-27] MEDS ORDERED: WARFARIN SODIUM 5 MG TAB PO ONE (17:00)
[2020-05-27] MEDS: FUROSEMIDE 40 MG/4 ML VIAL IV SCH (18:00)
--- NOTE | 2020-05-27 19:30 | NUR ---
Opening Shift Note Assumed care of patient, awake and alert. No S/S of distress/SOB or pain. Instructed on POC and to call for assist PRN. Bed in lowest locked position, call light within reach, side rails up x2. Will continue to monitor for changes Q1hr and PRN.
[2020-05-27] MEDS: INSULIN LANTUS (GLARGINE) 1 /0.01ml (100units/ml) SC SCH (21:56)
[2020-05-27] MEDS: NORTRIPTYLINE HCL 10 MG CAP PO SCH (21:57)
[2020-05-27] MEDS: ATORVASTATIN 20 MG TAB PO SCH (21:57)
[2020-05-27 23:26] VITALS: BP 129/68
[2020-05-28] MEDS: ACCU-CHEK COMFORT CURVE STRIP VI SCH ×6 (01:58→21:43)
[2020-05-28] MEDS: InsuLIN REG 1unit/0.01ml Soln (100units/ml) SC SCH ×6 (01:59→21:44)
[2020-05-28 06:21] VITALS: BP 130/64
[2020-05-28] MEDS: GABAPENTIN 100 MG CAP PO SCH ×3 (06:38→21:45)
[2020-05-28] MEDS: FUROSEMIDE 40 MG/4 ML VIAL IV SCH ×2 (06:38→17:34)
--- NOTE | 2020-05-28 08:00 | NUR ---
Opening Shift Note Assumed care of patient, awake and alert. No S/S of distress/SOB or pain. Instructed on POC and to call for assist PRN. Bed in lowest locked position, call light within reach, side rails up x2, bed alarm on. Will continue to monitor for changes Q1hr and PRN.
[2020-05-28 08:26] LABS: INR 2.85 (0.9-1.15)
[2020-05-28 09:00] VITALS: BP 114/62
[2020-05-28] MEDS: AMIODARONE HCL 200 MG TAB PO SCH ×2 (09:27→21:45)
[2020-05-28] MEDS: dilTIAZem 120MG ER CAP PO SCH (09:27)
[2020-05-28] MEDS: FLUoxetine HCL 20 MG CAP PO SCH (09:28)
[2020-05-28] MEDS: DIGOXIN 0.125 MG TAB PO SCH (09:28)
[2020-05-28] MEDS: POTASSIUM CHL 10 Meq TABLET PO SCH ×2 (09:28→21:45)
--- NOTE | 2020-05-28 12:00 | NUR ---
RECEIVED REPORT FROM KIKI RACHEL, PATIENT ALERT AND ORIENTED X4, NOT IN DISTRESS, CLEAR LS IN BILATERAL AND DIMINISHED LUNG LOBES, RR=18, DEEP BREATHING AND BREATHING WAS ENCOURAGED, DEMONSTRATED AND VERBALIZED UNDERSTANDING, DENIED CHEST PAIN AND SOB, A FIB H R=94 ON TELE MONITOR, ABDOMEN SOFT AND ROUND WITH ACTIVE BS, LAST BM TODAY REPORTED, GENERAL SKIN INTACT WARM TO TOUCH, LOWER EXTREMITIES NONE PITTING EDEMA NOTED, RADIAL AND PEDAL PULSES PALPABLE, CAP REFILL <3 SECONDS, DENIED PAIN, HEAD OF BED ELEVATED, BED ON LOW POSITION, RAILS UP X2, CALL LIGHT ON REACH, WILL CONTINUE MONITORING.
--- NOTE | 2020-05-28 12:15 | NUR ---
Nutrition Followup Notes Pt wt is 118.3 kg Pt is covid negative in [facility]. Pt reports appetite is not good starting to come back. Pt appetite appears to be good aeb pt with 75-100% of po intake of CCHo 60g diet per Rn note Est energy needs ABW 85 [id number] kcal (17-20kcal/kg ABW), Est protein needs 85-93g (1-1.1g/kg ABW). Will monitor and reassess prn. LABS: GLUC 149H, BUN 27H, Creat 1.12H, Alb 3.3L GI: Pt had 3 BMs on 05/28 per RN doc BS: 17 mod risk. Refer to wound assessment report for further details PES: 1) Decreased nutrient needs r.t adiposity aeb pt1s high BMI of 46.4 kgm2 2) Altered nutrition related lab values r.t current chronic medical condition aeb elev A1C hyperglycemia Malnutrition related to morbid BMI> or equal to 40 Malnutrition related to morbid obesity Yes Comments Will continue to monitor PO status, skin status, pertinent labs and weight trends. Will f/u in 3-5 days 1) Refer to CDE oN DC 2) Continue current plan of care
[2020-05-28 13:00] VITALS: BP 115/56
--- NOTE | 2020-05-28 16:45 | NUR ---
RESTING ON BED, NOT IN DISTRESS, DENIED PAIN, PENDING LABEL MAKER ON 05/29/20 REPORTED, WILL CONTINUE MONITORING.
[2020-05-28] MEDS ORDERED: WARFARIN SODIUM 1 MG TAB PO ONE (17:00)
[2020-05-28 17:16] VITALS: BP 131/66
--- NOTE | 2020-05-28 19:18 | NUR ---
TOLERATED PROVIDED DINNER TRAY, RESTING ON BED, NOT IN DISTRESS, REPORT WAS GIVEN TO THE EXPERIMENTAL PREFLIGHT MECHANIC RN.
[2020-05-28] MEDS: INSULIN LANTUS (GLARGINE) 1 /0.01ml (100units/ml) SC SCH (21:44)
[2020-05-28] MEDS: NORTRIPTYLINE HCL 10 MG CAP PO SCH (21:45)
[2020-05-28] MEDS: ATORVASTATIN 20 MG TAB PO SCH (21:45)
[2020-05-28 22:00] VITALS: BP 113/76
[2020-05-29] MEDS: InsuLIN REG 1unit/0.01ml Soln (100units/ml) SC SCH ×6 (01:46→22:13)
[2020-05-29] MEDS: ACCU-CHEK COMFORT CURVE STRIP VI SCH ×6 (01:46→22:14)
[2020-05-29 05:00] VITALS: BP 106/71
[2020-05-29] MEDS: GABAPENTIN 100 MG CAP PO SCH ×3 (06:00→21:56)
[2020-05-29] MEDS: FUROSEMIDE 40 MG/4 ML VIAL IV SCH ×2 (06:00→17:29)
--- NOTE | 2020-05-29 07:15 | NUR ---
Opening Shift Note Received report from client development director RN, Assumed care of patient, awake and alert. No S/S of distress/SOB or pain. Instructed on POC for scheduled procedure and to call for assist PRN, will continue to monitor for changes Q1hr and PRN.
--- NOTE | 2020-05-29 07:30 | NUR ---
patient off unit patient off unit in mine laborer for scheduled procedure. Addendum: 05/29/20 at 1059 by REX ALLRED RN RN Amended: Links added.
[2020-05-29] MEDS ORDERED: MIDAZOLAM HCL 1MG/1ML-2 ML VIAL IM ONE (08:15)
[2020-05-29] MEDS ORDERED: fentaNYL CITRATE 100 MCG/2 ML VL IV ONE (08:15)
[2020-05-29] MEDS ORDERED: LIDOCAINE VISCOUS 2% 15ML UD MT ONE (08:15)
[2020-05-29 08:56] VITALS: BP 141/75
--- NOTE | 2020-05-29 09:50 | NUR ---
patient back on unit per report patient given sedation. Patient educated to not eat or drink anything until gag reflex is back. Currently no gag reflex, will continue to monitor.
[2020-05-29 09:59] LABS: Basophils # (auto) 0 10 ^3/uL (0-0.2); Basophils % (auto) 0.2 % (0.0-2.0); Eosinophils # (auto) 0 10 ^3/uL (0-0.8); Eosinophils % (auto) 0.5 % (0.0-7.0); Hematocrit 44.5 % (36.0-46.0); Hemoglobin 14.7 g/dL (12.2-16.2); Lymphocytes # (auto) 0.4 10 ^3/uL (0.4-5.4); Lymphocytes % (auto) 9.9 % (10.0-50.0); Mean Corpuscular Hemoglobin 29.6 pg (28.0-32.0); Mean Corpuscular Hgb Conc. 33.1 g/dL (32.0-36.0); Mean Corpuscular Volume 89.2 fL (80.0-100.0); Monocytes # (auto) 0.4 10 ^3/uL (0-1.3); Monocytes % (auto) 10.3 % (0.0-12.0); Neutrophils # (auto) 2.9 10 ^3/uL (1.6-8.6); Neutrophils % (auto) 79.1 % (37.0-80.0); Nucleated Red Blood Cells % 0.1 %; Platelet Count (auto) 157 10^3/uL (140-450); Red Blood Cells 4.98 10^6/uL (4.0-5.20); Red Cell Distribution Width 14.4 % (11.8-14.3); White Blood Cell 3.7 10^3/uL (4.4-10.8)
[2020-05-29 10:14] LABS: Albumin 2.9 g/dL (3.4-5.0); Calcium 8.6 mg/dL (8.5-10.1); Potassium 4.2 mmol/L (3.5-5.1)
[2020-05-29 10:18] LABS: INR 2.6 (0.9-1.15); Partial Thromboplastin Time 44.8 sec (23.0-31.2)
[2020-05-29 10:20] LABS: BUN/Creatinine Ratio 17.1; Bilirubin, Total 0.4 mg/dL (0.2-1.0); Total Protein 7.6 g/dL (6.4-8.2)
[2020-05-29 10:30] VITALS: BP 136/94
--- NOTE | 2020-05-29 11:15 | NUR ---
Gag reflex redone Gag reflex intact, patient instructed she could drink and eat now. Patient verbalized understanding.
--- NOTE | 2020-05-29 11:22 | NUR ---
MD GAN AT BEDSIDE PATIENT INFORMED OF POC AND POSSIBLE DC TOMORROW ONCE OK WITH MD GUDINO. PATIENT VERBALIZED UNDERSTANDING.
[2020-05-29 12:28] VITALS: BP 114/61
[2020-05-29] MEDS: POTASSIUM CHL 10 Meq TABLET PO SCH ×2 (13:04→21:56)
[2020-05-29] MEDS: FLUoxetine HCL 20 MG CAP PO SCH (13:04)
[2020-05-29] MEDS: DIGOXIN 0.125 MG TAB PO SCH (13:05)
[2020-05-29] MEDS: AMIODARONE HCL 200 MG TAB PO SCH ×2 (13:05→21:55)
[2020-05-29] MEDS: dilTIAZem 120MG ER CAP PO SCH (13:06)
[2020-05-29 17:00] VITALS: BP 117/65
[2020-05-29] MEDS ORDERED: WARFARIN SODIUM 1 MG TAB PO ONE (17:00)
--- NOTE | 2020-05-29 19:45 | NUR ---
assumed care, pt. awake, no c/o pain, no sob.
[2020-05-29 21:00] VITALS: BP 122/77
[2020-05-29] MEDS: NORTRIPTYLINE HCL 10 MG CAP PO SCH (21:56)
[2020-05-29] MEDS: ATORVASTATIN 20 MG TAB PO SCH (21:56)
[2020-05-29] MEDS: INSULIN LANTUS (GLARGINE) 1 /0.01ml (100units/ml) SC SCH (22:14)
[2020-05-30] MEDS: InsuLIN REG 1unit/0.01ml Soln (100units/ml) SC SCH ×4 (02:00→14:00)
[2020-05-30] MEDS: ACCU-CHEK COMFORT CURVE STRIP VI SCH ×4 (02:37→14:00)
[2020-05-30 05:00] VITALS: BP 113/62
[2020-05-30] MEDS: GABAPENTIN 100 MG CAP PO SCH ×2 (05:39→14:00)
[2020-05-30] MEDS: FUROSEMIDE 40 MG/4 ML VIAL IV SCH (05:39)
--- NOTE | 2020-05-30 07:00 | NUR ---
OPENING SHIFT NOTE Assumed care of patient from bus cleaner RN. Patient is alert and oriented x4. no signs of distress noted, denies pain. She is sitting in a chair at bedside. She was updated on the plan of care and verbalized understanding. Call light is in reach. She was encouraged to call for assistance as needed.
[2020-05-30 07:53] LABS: INR 2.34 (0.9-1.15)
[2020-05-30 09:00] VITALS: BP 123/66
[2020-05-30] MEDS: DIGOXIN 0.125 MG TAB PO SCH (10:06)
[2020-05-30] MEDS: AMIODARONE HCL 200 MG TAB PO SCH (10:06)
[2020-05-30] MEDS: dilTIAZem 120MG ER CAP PO SCH (10:06)
[2020-05-30] MEDS: POTASSIUM CHL 10 Meq TABLET PO SCH (10:06)
[2020-05-30] MEDS: FLUoxetine HCL 20 MG CAP PO SCH (10:07)
[2020-05-30 13:00] VITALS: BP 119/60
[2020-05-30 13:14] VITALS: BP 118/60
[2020-05-30] MEDS ORDERED: INFLUENZA QUAD 2020-2021 0.5 ML SYRG IM ONE (13:45)
--- NOTE | 2020-05-30 14:18 | NUR ---
DISCHARGE Discharge instructions given as ordered. Encourage to follow up with PMD as instructed. All questions and concerns addressed. Patient verbalized understanding. Medication reconciliation form completed and copy given to patient. Needed vaccines given. IV removed with catheter intact, pressure dressing applied, Telemetry unit returned to ICU. Patient taken to vehicle via wheelchair with all personal belongings, accompanied by staff. No distress noted at time of departure.
[2020-05-30] MEDS ORDERED: WARFARIN SODIUM 5 MG TAB PO ONE (17:00)
== END 2020-05-30 14:19 | disposition home or self-care (01) | DRG 308 ==
LOC: ER 13:02 → EDBD 13:02 → TELE-CENTR 13:03 → TELE-WESTW 05-19 04:00
PROVIDERS: ADMIT Hospitalist; ATTEND Family Medicine
PROC: 5A2204Z Restoration of Cardiac Rhythm, Single (ICD-10-PCS; principal; 2020-05-29)
DX: I48.0 Paroxysmal atrial fibrillation (principal); I50.23 Acute on chronic systolic (congestive) heart failure; D68.4 Acquired coagulation factor deficiency; Z68.42 Body mass index [BMI] 45.0-49.9, adult; E66.2 Morbid (severe) obesity with alveolar hypoventilation; I11.0 Hypertensive heart disease with heart failure; E11.21 Type 2 diabetes mellitus with diabetic nephropathy; E11.319 Type 2 diabetes mellitus with unspecified diabetic retinopathy without macular edema; E11.40 Type 2 diabetes mellitus with diabetic neuropathy, unspecified; E11.65 Type 2 diabetes mellitus with hyperglycemia; E78.00 Pure hypercholesterolemia, unspecified; E78.5 Hyperlipidemia, unspecified; F32.9 Major depressive disorder, single episode, unspecified; G56.00 Carpal tunnel syndrome, unspecified upper limb; I25.5 Ischemic cardiomyopathy; Z20.828 Contact with and (suspected) exposure to other viral communicable diseases; Z79.01 Long term (current) use of anticoagulants; Z79.4 Long term (current) use of insulin; Z79.899 Other long term (current) drug therapy; Z82.3 Family history of stroke; Z83.3 Family history of diabetes mellitus; Z91.14 Patient's other noncompliance with medication regimen; F41.9 Anxiety disorder, unspecified
CPT/HCPCS: 36415; 71045; 71046; 71275; 80048; 80053; 80061; 80162; 80307; 81001; 82040; 82565; 82962; 83036; 83735; 83880; 84132; 84443; 84484; 84520; 85025; 85610; 85730; 86850; 86900; 86901; 87040; 87086; 87426; 93005; 93306; 93312; 96365; 96375; 99152; 99291; G0378; J0153; J1815; J2250; J2405; J7060; P9047

== ENCOUNTER 2020-07-03 18:59 | Emergency (ER) | payer OTHER ==
[~2020-07-03] VITALS: Ht 157.5 cm; Wt 126.1 kg
[2020-07-03 20:57] LABS: Basophils # (auto) 0 10 ^3/uL (0-0.2); Basophils % (auto) 0.9 % (0.0-2.0); Eosinophils # (auto) 0.2 10 ^3/uL (0-0.8); Eosinophils % (auto) 3.5 % (0.0-7.0); Hematocrit 38.6 % (36.0-46.0); Lymphocytes # (auto) 0.6 10 ^3/uL (0.4-5.4); Lymphocytes % (auto) 11.6 % (10.0-50.0); Mean Corpuscular Hemoglobin 30.4 pg (28.0-32.0); Mean Corpuscular Hgb Conc. 33.8 g/dL (32.0-36.0); Mean Corpuscular Volume 90.1 fL (80.0-100.0); Monocytes # (auto) 0.4 10 ^3/uL (0-1.3); Monocytes % (auto) 8.3 % (0.0-12.0); Neutrophils # (auto) 3.8 10 ^3/uL (1.6-8.6); Neutrophils % (auto) 75.7 % (37.0-80.0); Platelet Count (auto) 206 10^3/uL (140-450); Red Blood Cells 4.29 10^6/uL (4.0-5.20); Red Cell Distribution Width 15.7 % (11.8-14.3)
[2020-07-03 21:16] LABS: Magnesium 1.8 mg/dL (1.6-2.6)
[2020-07-03 21:29] LABS: Albumin 2.8 g/dL (3.4-5.0); Potassium 3.3 mmol/L (3.5-5.1)
[2020-07-03 21:32] LABS: BUN/Creatinine Ratio 21.6; Bilirubin, Total 0.3 mg/dL (0.2-1.0); Total Protein 7.7 g/dL (6.4-8.2)
[2020-07-03] MEDS ORDERED: POTASSIUM CHL 20 Meq TABLET PO ONE (23:00)
[2020-07-04 01:20] VITALS: BP 140/56
== END 2020-07-04 01:28 | disposition home or self-care (01) ==
LOC: ER 18:59
DX: R60.9 Edema, unspecified (principal); E87.6 Hypokalemia
CPT/HCPCS: 36415; 71045; 73620; 80053; 83735; 83880; 84484; 85025; 85379; 85652; 86141; 93005; 93970